=== PATIENT | female | born 1975 | race Caucasian/White ===

== ENCOUNTER → 2017-03-05 | Outpatient (CLI) | payer OTHER | LOC: M SMT 11:05 | DX: J06.9 Acute upper respiratory infection, unspecified (principal) | CPT/HCPCS: 71046 ==

== ENCOUNTER → 2017-04-29 | Outpatient (CLI) | payer OTHER ==
[2017-05-05 00:07] LABS: STREP PNEUMO TYPE 1 1.4 ug/mL (>1.3); STREP PNEUMO TYPE 12F <0.1 ug/mL (>1.3); STREP PNEUMO TYPE 18C 1.3 ug/mL (>1.3); STREP PNEUMO TYPE 19A 0.9 ug/mL (>1.3); STREP PNEUMO TYPE 23F 0.2 ug/mL (>1.3); STREP PNEUMO TYPE 3 0.6 ug/mL (>1.3); STREP PNEUMO TYPE 6B 0.9 ug/mL (>1.3); STREP PNEUMO TYPE 7F 0.2 ug/mL (>1.3); STREP PNEUMO TYPE 8 0.4 ug/mL (>1.3); STREP PNEUMO TYPE 9N 0.3 ug/mL (>1.3); STREP PNEUMO TYPE 9V 12.1 ug/mL (>1.3)
== END ==
LOC: M SMT 09:15
DX: J32.0 Chronic maxillary sinusitis (principal)
CPT/HCPCS: 86609

== ENCOUNTER → 2017-07-07 | Outpatient (CLI) | payer OTHER ==
[2017-07-10 08:06] LABS: QUANTIFERON GOLD TB Negative (Negative); TB Test (QFT) Antigen 0.03 IU/mL (.); TB Test (QFT) Antigen Minus Ni <0.01 IU/mL (.); TB Test (QFT) Mitogen 6.69 IU/mL (.); TB Test (QFT) Nil 0.04 IU/mL (.)
== END ==
LOC: M SMT 08:38
DX: L73.2 Hidradenitis suppurativa (principal)

== ENCOUNTER → 2017-07-07 | Outpatient (CLI) | payer OTHER ==
[2017-07-13 14:13] LABS: STREP PNEUMO TYPE 1 >33.8 ug/mL (>1.3); STREP PNEUMO TYPE 12F 0.5 ug/mL (>1.3); STREP PNEUMO TYPE 18C 14.7 ug/mL (>1.3); STREP PNEUMO TYPE 19A 2.4 ug/mL (>1.3); STREP PNEUMO TYPE 19F 11.5 ug/mL (>1.3); STREP PNEUMO TYPE 23F 2.8 ug/mL (>1.3); STREP PNEUMO TYPE 3 0.6 ug/mL (>1.3); STREP PNEUMO TYPE 4 37.9 ug/mL (>1.3); STREP PNEUMO TYPE 6B 15.6 ug/mL (>1.3); STREP PNEUMO TYPE 7F 3.9 ug/mL (>1.3); STREP PNEUMO TYPE 8 0.6 ug/mL (>1.3); STREP PNEUMO TYPE 9N 1.2 ug/mL (>1.3); STREP PNEUMO TYPE 9V >31.8 ug/mL (>1.3)
== END ==
LOC: M SMT 08:34
DX: D80.8 Other immunodeficiencies with predominantly antibody defects (principal)
CPT/HCPCS: 86609

== ENCOUNTER 2017-12-28 10:13 | Day surgery (SDC) | payer OTHER ==
[2017-12-28] MEDS: NS 1,000 ML IV (06:00)
[~2017-12-28 10:13] MED LIST: PROPOFOL 200 MG/20 ML VIAL As Ordered
[2017-12-28] MEDS ORDERED: LIDOCAINE 2% INJ 100 MG/5 ML SDV (FOR ANES.) As Ordered (11:21)
[2017-12-28] MEDS ORDERED: PROPOFOL 200 MG/20 ML VIAL As Ordered (11:37)
== END 2017-12-28 12:11 | disposition home or self-care (01) ==
LOC: M OPP 10:13
DX: Z12.11 Encounter for screening for malignant neoplasm of colon (principal); Z83.71 Family history of colonic polyps; D12.6 Benign neoplasm of colon, unspecified; K62.1 Rectal polyp
CPT/HCPCS: 45385

== ENCOUNTER → 2018-05-31 | Outpatient (CLI) | payer OTHER ==
[~2018-05-31] MED LIST changes: +HUMI40KI SC; -PROPOFOL 200 MG/20 ML VIAL As Ordered
[2018-05-31 15:20] LABS: BASO % 0.5 % (0.0-1.0); EOS # 0.4 10^3/uL (0.0-0.50); EOS % 5.9 % (0.0-3.0); HEMATOCRIT 41.7 % (36.0-47.0); HEMOGLOBIN 13.4 g/dl (12.0-15.5); LYMPH # 2.1 10^3/uL (1.5-4.5); LYMPH % 28.1 % (24.0-44.0); MEAN CORPUSCULAR HEMOGLOBIN 29.5 pg (27.0-33.0); MEAN CORPUSCULAR HGB CONC 32.1 g/dl (32.0-36.5); MEAN CORPUSCULAR VOLUME 91.9 fl (80.0-96.0); MONO # 0.5 10^3/uL (0.0-0.8); MONO % 6.5 % (0.0-5.0); NEUTROPHILS # 4.3 10^3/uL (1.8-7.7); NEUTROPHILS % 58.7 % (36.0-66.0); PLATELET COUNT, AUTOMATED 400 10^3/uL (150-450); RED BLOOD COUNT 4.54 10^6/uL (4.00-5.40); WHITE BLOOD COUNT 7.3 10^3/uL (4.0-10.0)
[2018-05-31 15:48] LABS: ALT/SGPT 26 U/L (12-78); BILIRUBIN,TOTAL 0.3 MG/DL (0.2-1.0); BLOOD UREA NITROGEN 17 MG/DL (7-18); CALCIUM LEVEL 9.1 MG/DL (8.5-10.1); CARBON DIOXIDE LEVEL 28 MEQ/L (21-32); CHLORIDE LEVEL 106 MEQ/L (98-107); CHOLESTEROL LEVEL 234 MG/DL (<200); CREATININE FOR GFR 0.77 MG/DL (0.55-1.30); FREE T4 1.13 NG/DL (0.76-1.46); GLOMERULAR FILTRATION RATE > 60.0 (>58); GLUCOSE, FASTING 89 MG/DL (70-100); HDL CHOLESTEROL 52 MG/DL (>40); LDL CHOLESTEROL 150 MG/DL (<100); NON-HDL-C 182 MG/DL; POTASSIUM SERUM 4.4 MEQ/L (3.5-5.1); SODIUM LEVEL 139 MEQ/L (136-145); TOTAL PROTEIN 7.3 GM/DL (6.4-8.2); TRIGLYCERIDES LEVEL 159 MG/DL (<150)
== END ==
LOC: M SMT 10:14
PROVIDERS: ATTEND Physician Assistant
DX: Z13.220 Encounter for screening for lipoid disorders (principal); L73.2 Hidradenitis suppurativa